=== PATIENT | male | born 1950 | race Caucasian/White ===

== ENCOUNTER → 2019-03-01 | Outpatient (CLI) | payer OTHER ==
[~2019-03-01] MED LIST: ABILIFY 5 MG TAB5 MG PO; COZAAR 25 MG TA25 M1 PO; GABAPENTIN 100100 MG PO; LIPITOR10 MG PO; METHYLPHENIDATE20 M4 PO; MOBIC15 MG PO; SINGULAIR 10 MG10 M1 PO; TOPROL XL100 MG PO; VALIUM5 MG PO
[2019-03-01 10:51] LABS: HEMATOCRIT 48.3 % (42.0-52.0); HEMOGLOBIN 15.7 gm/dL (14.0-18.0); MCH 29.2 pg (26.0-34.0); MCHC 32.4 g/dL (28.0-37.0); MCV 89.9 fL (80.0-100.0); MPV 7.1 fl. (7.2-11.1); NUCLEATED RBCS 0 /100WBC; PLATELET COUNT* 172 thou/uL (150-400); RBC 5.37 mil/uL (4.50-6.00); RDW-CV 14.1 % (10.5-14.5)
[2019-03-01 10:57] LABS: WBC 70.9 thou/uL (4.0-11.0)
[2019-03-01 11:06] LABS: ALBUMIN 3.9 g/dL (3.4-5.0); CALCIUM 9.4 mg/dL (8.5-10.1); CREATININE 1.3 mg/dL (0.6-1.3); POTASSIUM 4.2 mmol/L (3.5-5.1); TOTAL BILIRUBIN 1.6 mg/dL (<0.1-1.0); TOTAL PROTEIN 7.6 g/dL (6.4-8.2)
[2019-03-01 11:45] LABS: ABSOLUTE LYMPHOCYTES 62.4 thou/uL (0.8-5.3); ABSOLUTE MONOCYTES 2.1 thou/uL (0.0-1.2); ABSOLUTE NEUTROPHILS 6.4 thou/uL (1.6-8.1); ANISOCYTOSIS 1+; ATYPICAL LYMPHS 4 %; PLATELET ESTIMATE ADEQUATE; POIKILOCYTOSIS 1+
== END ==
LOC: M.LAB 10:00 → M.CT 10:30
PROVIDERS: Family Medicine
DX: K76.9 Liver disease, unspecified (principal); N40.0 Benign prostatic hyperplasia without lower urinary tract symptoms; K57.30 Diverticulosis of large intestine without perforation or abscess without bleeding; K40.20 Bilateral inguinal hernia, without obstruction or gangrene, not specified as recurrent; M47.816 Spondylosis without myelopathy or radiculopathy, lumbar region; F41.9 Anxiety disorder, unspecified; J44.9 Chronic obstructive pulmonary disease, unspecified; I10 Essential (primary) hypertension; Z82.49 Family history of ischemic heart disease and other diseases of the circulatory system; Z80.0 Family history of malignant neoplasm of digestive organs; Z80.3 Family history of malignant neoplasm of breast; Z87.891 Personal history of nicotine dependence; Z79.899 Other long term (current) drug therapy

== ENCOUNTER 2019-03-05 09:49 | Inpatient (IN) | payer OTHER ==
[~2019-03-05] VITALS: Ht 182.9 cm; Wt 74.4 kg
--- NOTE | ~2019-03-05 | PROC ---
[facility] [address] [place] [address] PROCEDURE REPORT Name: MICHAEL HERRERA Room: [address] IN M.R.#: [id number] Admission: 03/05/19 Attend Phys: Giuseppe Davis MD Discharge: 03/09/19 Date of : 48 Report #: [id number] THIS REPORT FOR: //name// For GI report, please see the Provation report in Perceptive 7 content. By: [id number] Records Staff BRITTANY /VLAD
--- NOTE | ~2019-03-05 | CON ---
[address] [address] CONSULTATION Name: MICHAEL HERRERA Room: [address] IN M.R.#: [id number] Admission: 03/05/19 Attend Phys: Giuseppe Davis MD Discharge: Date of : 48 Report #: [id number] THIS REPORT FOR: //name// CC: Giuseppe Ann DO DICTATED BY: Suzie Valdez [facility] DATE OF SERVICE: 03/07/2019 Please note at the time of this dictation, the patient was seen and physically examined by myself. REASON FOR CONSULTATION: Post-perennial pain. HISTORY OF PRESENT ILLNESS: This 68-year-old male who presented to the Emergency Room after being told by his PCP that he had an elevated lipase level from 03/03/2019, it was 804. He states he has been having some abdominal discomfort, which he states was usually after he ate. He denied any nausea or vomiting associated with this except for on Monday, which he states was non-coffee ground emesis or any bright red blood. He denies getting full quickly prior to all of this when he is eating. The patient did undergo an ultrasound, which was negative. It did show some gallbladder polyps and then he had a CCK PIPIDA that showed an EF of 39%. The patient denies any chronic use of any NSAIDs. He has never had any stomach issues. He had a colonoscopy done last year in 2017 that just showed some hemorrhoids and diverticular disease, otherwise negative. He has never had an upper scope done that he can recall at this time. ALLERGIES: No known drug allergies. MEDICATIONS: From home, see MAR. PAST MEDICAL HISTORY: COPD, hypertension, CLL, hearing impairment, depression, anxiety, ADHD. PAST SURGICAL HISTORY: He has had a right cochlear implant and ____ surgery. FAMILY HISTORY: Mother, colon cancer. SOCIAL HISTORY: Quit smoking about 7 years ago. Alcohol every couple of months. He denies any illegal drug use; however, he did test positive for THC. REVIEW OF SYSTEMS: Twelve-point review of systems is essentially negative except what [place] [address] CONSULTATION Name: MICHAEL HERRERA Room: [address] IN [facility]#: [id number] Admission: 03/05/19 Attend Phys: Giuseppe Davis MD Discharge: Date of : 48 Report #: [id number] PHYSICAL EXAMINATION: VITAL SIGNS: Temperature 37.3, pulse 64, respirations 18, blood pressure 162/92. HEART: Regular rate and rhythm. LUNGS: Clear. ABDOMEN: Soft, positive bowel sounds in all 4 quadrants with some right upper quadrant tenderness noted to palpation. LABORATORY DATA: Hemoglobin is 13.9, white count is 63,000, platelets 144. PT 10.5, INR 1.2. Total bilirubin is 2.3, alkaline phosphatase 69, ALT 19, AST is 15, direct bilirubin is 0.1. IMPRESSION: 1. Postprandial right upper quadrant pain. 2. Pancreatitis, resolved. 3. Elevated bilirubin. 4. Gallbladder polyps. 5. Chronic lymphocytic leukemia. 6. Family history, mother colon cancer. PLAN: 1. EGD tomorrow with Dr. Taylor. 2. Regular diet. 3. May consider a GET. 4. Further recommendations will be made once the procedure has been performed. Thank you for allowing us to participate in this patient's care. Please do not hesitate to call with any questions in regard to this consult. ADDENDUM This is a 68-year-old male who was seen and examined by myself. I also have reviewed labs and imaging studies. The patient reports that he started having acute epigastric pain with symptoms of nausea. This prompted him to come to the hospital. Prior to admission, he had lipase of 800. This had corrected by time of admission. CT of abdomen and pelvis also had shown some evidence of gallstone without any evidence of acute cholecystitis. The patient's liver enzymes were normal. The patient reports that his pain is somewhat better, but not resolved. We will consider performing upper endoscopy to rule out other etiologies of dyspepsia and pain such as H. pylori, peptic ulcer disease, esophagitis [place] [address] CONSULTATION Name: MICHAEL HERRERA Room: [address] IN .R.#: [id number] Admission: 03/05/19 Attend Phys: Giuseppe Davis MD Discharge: Date of : 48 Report #: [id number] will make further recommendation based on finding. We believe that his pancreatitis was due to a gallstone, which has been passed. By: [id number] Miles MD /nt
--- NOTE | 2019-03-05 11:20 | NUR ---
PT ARRIVED ON UNIT AT APPROX 1105 VIA WC, PT DIRECT ADMIT FROM DR SCHREIBER D/T LABWORK INDICATING PANCREATITIS. PT A&O X4, VSS, ROTOR PILOT TRACING SINUS RHYTHM/SINUS CONCETTA. LS DIMINISHED IN ALL LOBES, RA. PT C/O RIGHT UPPER QUAD PAIN 07/30, DR GOLDSMITH NOTIFIED FOR NEW ORDERS. PT UP AD WINSTON TO BATHROOM. ORIENTED TO CALL LIGHT AND ROOM.
[2019-03-05 11:31] LABS: HEMATOCRIT 45.6 % (42.0-52.0); HEMOGLOBIN 15.2 gm/dL (14.0-18.0); MCH 29.8 pg (26.0-34.0); MCHC 33.3 g/dL (28.0-37.0); MCV 89.5 fL (80.0-100.0); MPV 7.3 fl. (7.2-11.1); NUCLEATED RBCS 0 /100WBC; PLATELET COUNT* 163 thou/uL (150-400); RDW-CV 13.9 % (10.5-14.5)
[2019-03-05 11:35] LABS: WBC 72.7 thou/uL (4.0-11.0)
[2019-03-05 11:38] LABS: APTT 26.8 Seconds (25.0-31.3); PROTIME 10.5 Seconds (9.20-11.50)
[2019-03-05 11:45] LABS: ALBUMIN 3.9 g/dL (3.4-5.0); CALCIUM 8.9 mg/dL (8.5-10.1); CREATININE 1.2 mg/dL (0.6-1.3); POTASSIUM 3.7 mmol/L (3.5-5.1); TOTAL BILIRUBIN 1.5 mg/dL (<0.1-1.0); TOTAL PROTEIN 7.3 g/dL (6.4-8.2)
[2019-03-05 12:18] LABS: ABSOLUTE LYMPHOCYTES 64.7 thou/uL (0.8-5.3); ABSOLUTE MONOCYTES 1.5 thou/uL (0.0-1.2); ABSOLUTE NEUTROPHILS 6.5 thou/uL (1.6-8.1); PLATELET ESTIMATE ADEQUATE
[2019-03-05] MEDS ORDERED: MOBIC15 MG PO (12:41)
[2019-03-05] MEDS ORDERED: COZAAR 25 MG TA25 M1 PO (12:42)
[2019-03-05] MEDS ORDERED: SINGULAIR 10 MG10 M1 PO (12:43)
[2019-03-05] MEDS ORDERED: LIPITOR10 MG PO (12:44)
[2019-03-05] MEDS ORDERED: VALIUM5 MG PO (12:45)
[2019-03-05] MEDS ORDERED: TOPROL XL100 MG PO (12:47)
[2019-03-05] MEDS ORDERED: GABAPENTIN 100100 MG PO (12:47)
[2019-03-05] MEDS ORDERED: ABILIFY 5 MG TAB5 MG PO (12:49)
[2019-03-05] MEDS ORDERED: METHYLPHENIDATE20 M4 PO (12:54)
[2019-03-05 16:00] VITALS: BP 164/99
[2019-03-05 16:32] LABS: URINE BILIRUBIN NEGATIVE (Negative); URINE BLOOD 3+ (Negative); URINE CLARITY CLEAR; URINE COLOR YELLOW; URINE GLUCOSE-RANDOM NEGATIVE (Negative); URINE KETONES 1+ (Negative); URINE LEUKOCYTES-REFLEX NEGATIVE (Negative); URINE NITRITE-REFLEX NEGATIVE (Negative); URINE PROTEIN 1+ (Negative); URINE UROBILINOGEN 0.2 E.U./dl (0.2-1.0)
[2019-03-05 16:39] LABS: BACTERIA-REFLEX 1-9 Few /HPF (None Seen); SQUAMOUS 0-3 Few /LPF (0-3); URINE RBC None Seen /HPF (0-2); URINE WBC-REFLEX None Seen /HPF (0-5)
[2019-03-05 16:40] LABS: CASTS None Seen /LPF (None Seen); CRYSTALS None Seen /LPF (None Seen)
[2019-03-05 16:55] LABS: AMP/METHAMP Negative (Negative); BARBITURATES Negative (Negative); BENZODIAZEPINES POSITIVE (Negative); COCAINE Negative (Negative); METHADONE Negative (Negative); OPIATES POSITIVE (Negative); PCP Negative (Negative); THC POSITIVE (Negative)
[2019-03-05 20:00] VITALS: BP 155/86
[2019-03-06] VITALS: BP 161/88
--- NOTE | 2019-03-06 03:33 | NUR ---
ASSUMED PT CARE AT APPROX 1930. PT IS AWAKE AND ORIENTED X4. VSS ON ROOM AIR. PICKING BELT OPERATOR IN PLACE TRACING SR/SB. PT IS HARD OF HEARING. DENIES SOA AND CHEST PAIN. RE-ASSESSMENT DONE AND CHARTED. PT C/O RUQ ABDOMINAL PAIN RELIEVED BY PAIN MEDS GIVEN PER JAN. PT WAS ABLE TO SLEEP THROUGH THE NIGHT. CALL LIGHT WITHIN REACH. HOURLY ROUNDING DONE FOR PT SAFETY.
[2019-03-06 04:00] VITALS: BP 158/88
[2019-03-06 05:51] LABS: ABSOLUTE BASOPHILS 0.1 thou/uL (0.0-0.2); ABSOLUTE EOSINOPHILS 0.1 thou/uL (0.0-0.7); ABSOLUTE LYMPHOCYTES 57.6 thou/uL (0.8-5.3); ABSOLUTE MONOCYTES 1.3 thou/uL (0.0-1.2); ABSOLUTE NEUTROPHILS 3.8 thou/uL (1.6-8.1); BASOPHILS 0.2 %; EOSINOPHILS 0.2 %; HEMATOCRIT 41.9 % (42.0-52.0); HEMOGLOBIN 13.9 gm/dL (14.0-18.0); LYMPHOCYTES 91.5 %; MCH 29.8 pg (26.0-34.0); MCHC 33.3 g/dL (28.0-37.0); MCV 89.6 fL (80.0-100.0); MONOCYTES 2.1 %; MPV 7.6 fl. (7.2-11.1); NUCLEATED RBCS 0 /100WBC; PLATELET COUNT* 144 thou/uL (150-400); RBC 4.67 mil/uL (4.50-6.00); RDW-CV 13.6 % (10.5-14.5)
[2019-03-06 05:55] LABS: ALBUMIN 3.3 g/dL (3.4-5.0); ALKALINE PHOSPHATASE 62 U/L (46-116); ANION GAP 7 mmol/L (7-16); BUN 16 mg/dL (7-18); CALCIUM 8.5 mg/dL (8.5-10.1); CHLORIDE 105 mmol/L (98-107); CHOLESTEROL 107 mg/dL (<200); CO2 26 mmol/L (21-32); CREATININE 1.1 mg/dL (0.6-1.3); GLUCOSE 104 mg/dL (70-99); HDL CHOLESTEROL 40 mg/dL (>40); LDL CHOLESTEROL 51 mg/dL (<100); POTASSIUM 4.1 mmol/L (3.5-5.1); SGOT 15 U/L (15-37); SGPT 19 U/L (30-65); SODIUM 138 mmol/L (136-145); TC:HDL 2.7 Ratio (Not establshd); TOTAL PROTEIN 6.3 g/dL (6.4-8.2); TRIGLYCERIDE 80 mg/dL (<150); VLDL 16 mg/dL (<40)
[2019-03-06 05:56] LABS: SERUM ASSESSMENT Clear
[2019-03-06 08:00] VITALS: BP 158/88
--- NOTE | 2019-03-06 08:00 | NUR ---
PT IN BED, CALL LIGHT IN REACH. A&O X4, UP AD WINSTON, INSTITUTIONAL COOK TRACING SINUS CONCETTA. CONT TO C/O ABD PAIN IN RIGHT UPPER QUAD, PT EDUCATED ON US FINDINGS, CONT ON CLEAR LIQUID DIET, PRN PAIN MEDS ON BOARD. WILL CONT POC.
--- NOTE | 2019-03-06 10:10 | NUR ---
Pt is A&O. Resides at home with his girlfriend. Normally active and independent. No DME. No hx of HH or SNF. Pt states that he may have to have his gallbladder removed, during this hospital stay. Goal is home at dc, no needs anticipated. Following
[2019-03-06 12:00] VITALS: BP 142/88
[2019-03-06 12:57] LABS: URINE BILIRUBIN NEGATIVE (Negative); URINE BLOOD 2+ (Negative); URINE CLARITY CLEAR; URINE COLOR YELLOW; URINE GLUCOSE-RANDOM NEGATIVE (Negative); URINE KETONES NEGATIVE (Negative); URINE LEUKOCYTES NEGATIVE (Negative); URINE NITRITE NEGATIVE (Negative); URINE PROTEIN NEGATIVE (Negative); URINE SPECIFIC GRAVITY <= 1.005 (1.005-1.030); URINE UROBILINOGEN 0.2 E.U./dl (0.2-1.0)
[2019-03-06 13:09] LABS: SQUAMOUS NONE SEEN /LPF (0-3); URINE RBC 3-10 Few /HPF (0-2)
[2019-03-06 13:10] LABS: URINE WBC 0-5 Rare /HPF (0-5)
[2019-03-06 13:11] LABS: BACTERIA 1-9 Few /HPF (None Seen); CASTS None Seen /LPF (None Seen); CRYSTALS None Seen /LPF (None Seen); MUCUS None Seen strn/LPF (None Seen)
--- NOTE | 2019-03-06 14:32 | EKG ---
[place] [address] ELECTROCARDIOGRAM REPORT Name: MICHAEL HERRERA Room: [address] ADM IN M.R.#: [id number] Admission: 03/05/19 Attend Phys: Giuseppe Davis MD Discharge: Date of : 48 Report #: [id number] THIS REPORT FOR: //name// [facility] Test Date: 2019-03-05 Test Time: 14:38:30 Pat Name: MICHAEL HERRERA Department: Room: [address] Gender: M Brake Press Operator: [facility] : 1950 Requested By: Giuseppe Davis Order Number: [id number] Rory MD: Andres Strong Measurements Intervals [place] Rate: 61 P: 30 AR: 149 QRS: 10 QRSD: 117 T: -20 QT: 472 QTc: 476 Interpretive Statements Sinus rhythm Nonspecific intraventricular conduction delay Borderline repolarization abnormality No previous ECG available for comparison Electronically Signed On 03-06-2019 14:32:14 CDT by Andres Strong [email or web address] <ELECTRONICALLY SIGNED> By: Andres Strong MD, [facility] 03/06/19 1432 1438 1438 Andres Strong MD, FACC /EPI
[2019-03-06 16:00] VITALS: BP 163/83
--- NOTE | 2019-03-06 19:12 | NUR ---
PT A&O X4, PIPIDA SCAN CLEAR, DENIES ANY N/V, C/O SLIGHT PAIN TO RIGHT UPPER QUAD IN AM, PRN PAIN MEDS ON BOARD. UP AD WINSTON, VSS, DRY CELL BATTERY ASSEMBLER TRACING SINUS CONCETTA. HOURLY ROUNDING COMPLETED, PER DR TENA, PT REMAINS ON FULL LIQUID DIET.
[2019-03-06 20:00] VITALS: BP 154/92
[2019-03-07] VITALS: BP 138/85
[2019-03-07 02:11] LABS: GLYCOHEMOGLOBIN (HGB A1C) 5.7 % (4.8-5.6)
[2019-03-07 04:00] VITALS: BP 150/93
--- NOTE | 2019-03-07 04:45 | NUR ---
ASSUMED PT CARE AT APPROX 1930. PT IS AWAKE AND ORIENTED X4. VSS ON ROOM AIR. MANAGER BEAUTY IN PLACE TRACING TELE. ABLE TO TOLERATE CLEAR LIQUIDS, DENIES N/V. VERBALIZED THAT HE'S FEELING BETTER. C/O RUQ ABDOMINAL PAIN BUT SAID IS NOT BAD BEFORE, RELIEVED BY PAIN MEDS GIVEN PER MAR. CALL LIGHT WITHIN REACH. HOURLY ROUNDING DONE FOR PT SAFETY.
[2019-03-07 08:00] VITALS: BP 166/102
--- NOTE | 2019-03-07 08:00 | NUR ---
ASSUMED PT CARE AT 0700, PT LYING IN BED, A&O X4, UP AD WINSTON, MACHINE BINDING FOLDER TRACING SINUS CONCETTA. PIPIDA SCAN NEGATIVE, GI CONSULTED, PT REMAINS ON FULL LIQUID DIET UNTIL FURTHER NOTICE. DENIES ANY N/V, C/O PAIN TO RIGHT UPPER QUAD 6/10, PRN PAIN MEDS ON BOARD. WILL CONT POC.
[2019-03-07 10:10] LABS: HEPATITIS B SURFACE AG Negative (Negative)
[2019-03-07 11:49] VITALS: BP 162/92
[2019-03-07 12:19] LABS: HEMATOCRIT 43.1 % (42.0-52.0); HEMOGLOBIN 14.2 gm/dL (14.0-18.0); MCH 29.7 pg (26.0-34.0); MCHC 33.1 g/dL (28.0-37.0); MCV 89.6 fL (80.0-100.0); RBC 4.8 mil/uL (4.50-6.00); RDW-CV 13.6 % (10.5-14.5)
[2019-03-07 12:24] LABS: WBC 61.1 thou/uL (4.0-11.0)
[2019-03-07 12:38] LABS: ALBUMIN 3.6 g/dL (3.4-5.0); CALCIUM 8.5 mg/dL (8.5-10.1); CREATININE 1.3 mg/dL (0.6-1.3); MAGNESIUM 2.1 mg/dL (1.8-2.4); PHOSPHORUS* 3.9 mg/dL (2.5-4.9); TOTAL BILIRUBIN 2.3 mg/dL (<0.1-1.0); TOTAL PROTEIN 6.5 g/dL (6.4-8.2)
[2019-03-07 15:28] VITALS: BP 154/88
--- NOTE | 2019-03-07 19:45 | NUR ---
VSS, UP AD WINSTON, HOURLY ROUNDING COMPLETED. NPO AT MIDNIGHT FOR GI PROCEDURE. DENIES ANY N/V OR PAIN AT THIS TIME.
[2019-03-07 20:00] VITALS: BP 150/84
[2019-03-08] VITALS (7 sets, daily range): BP systolic 117–181; BP diastolic 69–99
--- NOTE | 2019-03-08 02:05 | NUR ---
PT HYDROCODONE ORDERED Q 6 HRS. PTS ASKED NURSE TO CALL DR FOR EXTRA PAIN MEDICATION. PT RATED PAIN 5/10. PT LAYING IN BED WITH KNEES DRAWN TO CHEST ROLLING ON BED. DR ORDERED ONE EXTRA DOSE OF HYDROCODONE AND A URINE DRG SCREEN COLLECTED AND SENT TO LAB. TELEMETRY SHOWS SR. NPO AT DC FOR EGD.
[2019-03-08 05:24] LABS: ALBUMIN 3.4 g/dL (3.4-5.0); CALCIUM 8.3 mg/dL (8.5-10.1); CREATININE 1.2 mg/dL (0.6-1.3); POTASSIUM 4.3 mmol/L (3.5-5.1); TOTAL BILIRUBIN 1.5 mg/dL (<0.1-1.0); TOTAL PROTEIN 6.4 g/dL (6.4-8.2)
[2019-03-08 05:43] LABS: MAGNESIUM 1.9 mg/dL (1.8-2.4); PHOSPHORUS* 3.5 mg/dL (2.5-4.9)
--- NOTE | 2019-03-08 09:00 | NUR ---
ASSUMED PT. CARE AND RECEIVED REPORT AT 0730. PT. A/OX4, BP ELEVATED AT 170/96 OTHERWISE VSS. MONITOR ON TRACING SB PVC. PT. REPORTS PAIN IN ABD. 03/29. FULL ASSESSMENT COMPLETED, REFER TO CHARTING. PT. GIVE PO BP MEDS, PT. TAKEN BY STEAM TRAP MAN FOR EGD. PT. AT BEDSIDE.
--- NOTE | 2019-03-08 18:47 | NUR ---
PT. STABLE THROUG OUT SHIFT. TOLERATED CLEAR LIQUID DIET THIS EVENING. PT. HAS SLEPT GOOD PORTION OF AFTERNOON SINCE RETURNING FROM EGD. S.O. REMAINS AT BEDSIDE. HOURLY ROUNDING COMPLETED FOR PT. SAFETY.
[2019-03-09 03:49] VITALS: BP 150/72
[2019-03-09 05:14] LABS: HEMATOCRIT 40.3 % (42.0-52.0); HEMOGLOBIN 13.5 gm/dL (14.0-18.0); MCH 29.8 pg (26.0-34.0); MCHC 33.5 g/dL (28.0-37.0); MPV 7.5 fl. (7.2-11.1); RBC 4.52 mil/uL (4.50-6.00); RDW-CV 13.6 % (10.5-14.5)
[2019-03-09 05:17] LABS: WBC 56.8 thou/uL (4.0-11.0)
[2019-03-09 05:29] LABS: ALBUMIN 3.3 g/dL (3.4-5.0); CALCIUM 8.2 mg/dL (8.5-10.1); CREATININE 1.1 mg/dL (0.6-1.3); PHOSPHORUS* 3.6 mg/dL (2.5-4.9); POTASSIUM 3.7 mmol/L (3.5-5.1)
[2019-03-09 08:00] VITALS: BP 172/89
--- NOTE | 2019-03-09 08:06 | NUR ---
PT IS ABLE TO COMMUNICATE HIS NEEDS TO STAFF WITH MINOR DIFFICULTY; HE IS [id number]. CURRENT PAIN MEDICATION REGIMEN HAS BEEN ADEQUATE FOR CONTROLLING HIS PAIN UP TO THIS TIME. FULL LIQUID DIET AT THIS TIME. POSSIBLE DISCHARGE LATER TODAY.
--- NOTE | 2019-03-09 10:42 | NUR ---
ASSUMED CARE OF PATIENT THIS AM AT 0730. PATIENT IS ALERT AND ORIENTED X 4. HE C/O CONTINUED ABD PAIN THIS AM. PATIENT MEDICATED FOR PAIN. HE DENIES N/V. TELE SHOWS NSR. IV FLUIDS CONTINUED PER ORDER. WILL CONTINUE TO MONITOR COMFORT.
[2019-03-09] MEDS ORDERED: PROTONIX40 M1 PO (11:50)
[2019-03-09 11:56] VITALS: BP 161/87
[2019-03-09 13:41] VITALS: BP 161/87
== END 2019-03-09 13:43 | disposition home or self-care (01) | DRG 439 ==
LOC: M.2W 09:49
PROVIDERS: Internal Medicine; Surgery; ADMIT Family Medicine
PROC: 0DJ08ZZ Inspection of Upper Intestinal Tract, Via Natural or Artificial Opening Endoscopic (ICD-10-PCS; principal; 2019-03-08)
DX: K85.90 Acute pancreatitis without necrosis or infection, unspecified (principal); E44.1 Mild protein-calorie malnutrition; J44.9 Chronic obstructive pulmonary disease, unspecified; H91.90 Unspecified hearing loss, unspecified ear; K82.4 Cholesterolosis of gallbladder; E80.6 Other disorders of bilirubin metabolism; F90.9 Attention-deficit hyperactivity disorder, unspecified type; N18.3 Chronic kidney disease, stage 3 (moderate); I12.9 Hypertensive chronic kidney disease with stage 1 through stage 4 chronic kidney disease, or unspecified chronic kidney disease; F32.9 Major depressive disorder, single episode, unspecified; F41.9 Anxiety disorder, unspecified; F11.10 Opioid abuse, uncomplicated; F13.10 Sedative, hypnotic or anxiolytic abuse, uncomplicated; F12.10 Cannabis abuse, uncomplicated; Z85.6 Personal history of leukemia; Z87.891 Personal history of nicotine dependence; Z79.899 Other long term (current) drug therapy; Z80.0 Family history of malignant neoplasm of digestive organs; Z68.22 Body mass index [BMI] 22.0-22.9, adult

== ENCOUNTER → 2019-08-14 | Outpatient (CLI) | payer OTHER ==
[~2019-08-14] MED LIST changes: +PROTONIX40 M1 PO
== END ==
LOC: M.ULTRA 07:49
DX: K76.89 Other specified diseases of liver (principal)

== ENCOUNTER → 2019-10-08 | Outpatient (CLI) | payer OTHER | LOC: M.CT 12:36 | DX: R91.8 Other nonspecific abnormal finding of lung field (principal) ==

== ENCOUNTER → 2021-03-24 | Outpatient (CLI) | payer OTHER | LOC: M.ULTRA 13:42 | PROVIDERS: ATTEND Specialist | DX: K76.89 Other specified diseases of liver (principal); R31.9 Hematuria, unspecified ==

== ENCOUNTER → 2021-09-25 | Outpatient (CLI) | payer OTHER ==
--- NOTE | 2021-10-26 14:14 | SLEEP ---
[address] [address] SLEEP STUDY REPORT Name: MICHAEL HERRERA Room: [facility].#: [id number] Admission: 09/25/21 Attend Phys: Meño Egan MD Discharge: Date of : 48 Report #: [id number] THIS REPORT FOR: cc: Phan Ann Vincent R. DO Pervez, Adeel MD ~ DATE OF STUDY: 09/25/2021 SLEEP STUDY INDICATION FOR SLEEP STUDY: Daytime sleepiness. INTERPRETATION: Total duration of the study is 428 minutes and during this time duration, the patient was asleep for 262 minutes with an overall sleep efficiency of 61.3%. Sleep onset occurred 11 minutes after lying down in bed. There is no REM sleep recorded during the sleep study. N1 sleep duration is 15%, N2 duration is 84%, N3 duration is 1%. There are rare sleep-related respiratory events recorded. These include 3 hypopneas and 2 respiratory effort-related arousals. Overall, apnea-hypopnea index is 0.7. Body position data indicates the patient is observed asleep in the supine position for 207 minutes, the rest of the time, the patient is on the right side. There is no obvious positional variation. Mean heart rate is 60. Periodic limb movement index is normal at 0.9. Arousal index is normal at 9.2. O2 saturations are adequately maintained throughout the sleep study. IMPRESSION: There are rare sleep-related respiratory events recorded. However, the patient's overall apnea-hypopnea index is normal at 0.7 and O2 saturation is adequately maintained during the sleep study. Obstructive sleep apnea was not detected during the sleep study. RECOMMENDATIONS: We will follow up in the office and evaluate further his sleep complaints. As above, this sleep study did not detect obstructive sleep apnea, but it is limited by reduction in sleep efficiency to 61.3% and also the absence of REM sleep and therefore if the clinical suspicion of obstructive sleep apnea remains high, then I may consider another sleep study later to evaluate further. His entire sleep study reviewed by board certified sleep physician. <ELECTRONICALLY SIGNED> By: Meño Egan MD 10/26/21 1414 2134 [id number] Egan MD /nt
== END ==
LOC: M.SLEEPLAB 08:00
PROVIDERS: ATTEND Internal Medicine Critical Care Medicine
DX: G47.19 Other hypersomnia (principal); R09.02 Hypoxemia